=== PATIENT | male | born 1990 | race Asian ===

== ENCOUNTER 2018-08-21 15:18 | Emergency (ER) | payer OTHER ==
[2018-08-21] MEDS ORDERED: Bacitracin/Neomycin/Polymyxin B Oint 0.9 GM U/D Packet TOP ONE (16:07)
[2018-08-21] MEDS ORDERED: Cephalexin 250 MG Cap PO ONE (16:07)
--- NOTE | 2018-08-21 16:08 | EDM.PDOC ---
ED HPI GENERAL MEDICAL PROBLEM - General Chief Complaint: Upper Extremity Injury/Pain Stated Complaint: left forarm possible absess Time Seen by Provider: 08/21/18 15:25 Source of Information: Reports: Patient History Limitations: Reports: No Limitations - History of Present Illness INITIAL COMMENTS - FREE TEXT/NARRATIVE: Patient presents with localized swelling and tenderness left forearm. He reports that it started Sunday, 5 days ago. Getting worse. Went to [facility] and told to go to the ER. No fevers/chills. Noted that he had swollen lymph node in left armpit today. Tried to drain it on his own but unsuccessful. No other complaints. No history of similar problems in past. - Related Data Allergies Allergy/AdvReac Type Severity Reaction Status Date / Time No Known Allergies Allergy Verified 08/21/18 15:19 Home Meds: Home Meds Cephalexin [Keflex] 500 mg PO TID #15 capsule 08/21/18 [Rx] Past Medical History - Past Health History Medical/Surgical History: Denies Medical/Surgical History Review of Systems - Review of Systems Review Of Systems: ROS reveals no pertinent complaints other than HPI. ED EXAM, GENERAL - Physical Exam Exam: See Below Exam Limited By: Intoxication General Appearance: Alert, WD/WN, No Apparent Distress Eye Exam: Bilateral Eye: EOMI, PERRL Throat/Mouth: Normal Voice, No Airway Compromise Head: Atraumatic, Normocephalic Neck: Supple Respiratory/Chest: No Respiratory Distress Extremities: Other (localized swelling/redness with central scab noted mid left forearm. Approximately 4cm across. Surrounding erythema. No streaking of redness noted. No active drainage. Mild lymphadenopathy of left axillary region. ) Neurological: Normal Cognition, Normal Gait, No Motor/Sensory Deficits Psychiatric: Normal Affect, Normal Mood Skin Exam: Warm, Dry ED TRAUMA EXTREMITY PROCEDURES - I&D Site: left forearm Skin Prep: Providone-Iodine (Betadine) Local Anesthesia: Lidocaine: 1% Plain Local Anesthetic Volume: 5cc Area Incised With: 11 Blade Drainage: Purulent, Large Amount Probed to Break Up Loculations: No Packed With: 1/4 in. Iodoform Sterile Dressinx4(s) Complications: No Course - Orders/Labs/Meds Orders: Active Orders 24 hr Category Date Time Status CULTURE WOUND + SMEAR [RM] Stat Lab 08/21/18 15:37 Ordered - Re-Assessments/Exams Free Text/Narrative Re-Assessment/Exam: 08/21/18 16:16 Cultures/smear pending. Keflex PO given. Instructed to follow up Sunday, two days from now, for wound recheck/new packing if needed. Further work restrictions can be determined at that time if needed. Departure - Departure Time of Disposition: 16:17 Disposition: Home, Self-Care 01 Condition: Good Clinical Impression: Encounter for incision and drainage procedure, Abscess - Discharge Information *PRESCRIPTION DRUG MONITORING PROGRAM REVIEWED*: Not Applicable *COPY OF PRESCRIPTION DRUG MONITORING REPORT IN PATIENT ALEXANDRU: Not Applicable Prescriptions: Cephalexin [Keflex] 500 mg PO TID #15 capsule Instructions: Incision and Drainage, Care After Additional Instructions: Keep bandage and packing in place. Make appointment for wound recheck for Sunday, two days from now. Wound should be rechecked and repacked if needed. Further work restrictions can be determined at that time if needed. Take Keflex three times a day until the pills are all gone to help with the infection. Follow up as needed if you suddenly develop worsening symptoms. - My Orders Last 24 Hours: My Active Orders 08/21/18 15:37 CULTURE WOUND + SMEAR [RM] Stat - Assessment/Plan Last 24 Hours: My Active Orders 08/21/18 15:37 CULTURE WOUND + SMEAR [RM] Stat
== END 2018-08-21 17:05 | disposition home or self-care (01) ==
LOC: EDBD 15:18 → LL.ED 15:18
DX: L02.414 Cutaneous abscess of left upper limb (principal)
CPT/HCPCS: 10060; 87070; 87075; 87077; 87186; 87205; 99283; A9270; J2001

== ENCOUNTER 2021-07-27 05:16 | Emergency (ER) | payer BC ==
[2021-07-27] MEDS: Ondansetron 4 MG/2 ML SDV IVPUSH ONE (05:47)
[2021-07-27] MEDS: diphenhydrAMINE 50 MG/ML SDV IVPUSH ONE (05:52)
[2021-07-27] MEDS: methylPREDNISolone Sodium Succinate 125 MG/2 ML SDV IV ONE (06:11)
== END 2021-07-27 07:15 | disposition home or self-care (01) ==
LOC: LL.ED 05:16
DX: T78.40XA Allergy, unspecified, initial encounter (principal)
CPT/HCPCS: 96374; 96375; 99283-25; J1200; J2405; J2930